=== PATIENT | female | born 1970 | race Caucasian/White ===

== ENCOUNTER 2016-12-24 21:27 | Emergency (ER) | payer BC ==
[2016-12-24 21:48] VITALS: BP 109/63; PULSE 67; TEMP 98; BMI 25.4
--- NOTE | 2016-12-24 23:28 | PDOC ---
Attending Attestation - Resident Resident Name: Anastasiia Bearden - HPI HPI: 12/24/16 23:27 46 YO WNWD FEMALE P/W LOWER LEFT CALF PAIN - Physicial Exam PE: 12/24/16 23:28 46 yo female HEENT wnl lungs cta b.l cvs [id number] abd nontender left calf, no erythema ,no cellulitis neuro no gross focal deficits - Medical Decision Making 12/24/16 23:29 duplex doppler of left leg is NEGATIVE
--- NOTE | 2016-12-24 23:31 | PDOC ---
History of Present Illness - General Chief Complaint: Pain Stated Complaint: PAIN Time Seen by Provider: 12/24/16 22:51 History Source: Patient Exam Limitations: No Limitations - History of Present Illness Initial Comments: This is a 46 yo female with h/o pre-diabetes who presents with pain in the left calf and the back of the knee. Her pain started two days ago and has been worsening, feels like a tightness or a pulled muscle, and occasionally radiates down to the bottom of her left foot. The pain is normally minimal, but when she is walking or bending the knee, it increases to 8/10. She has taken Motrin for the pain at home. She denies any falls or other injuries lately, but notes that she frequently wears high heels. She has not experienced any recent SOB, chest pain, cough, sore throat, fever, chills, or vision changes. She returned from a trip to [place] on 12/17 but has had no other recent travel. She has no h/o blood clotting problems or miscarriages, and her mother never had a miscarriage that she knows of. Past History - Past Medical History Allergies/Adverse Reactions: Allergies Allergy/AdvReac Type Severity Reaction Status Date / Time Penicillins Allergy Hives Verified 12/24/16 21:46 Home Medications: Ambulatory Orders NK [No Known Home Medication] 03/05/15 Other medical history: Pt denies - Psycho/Social/Smoking Cessation Hx Anxiety: Yes Suicidal Ideation: No Smoking History: Never smoked Information on smoking cessation initiated: No Hx Alcohol Use: No Drug/Substance Use Hx: No Substance Use Type: None Review of Systems - Review of Systems Constitutional: No: Chills, Fever, Unexplained wgt Loss HEENTM: No: Nose Congestion, Throat Pain Respiratory: No: Cough, Shortness of Breath Cardiac (ROS): No: Chest Pain, Palpitations ABD/GI: No: Constipated, Diarrhea, Nausea, Vomiting : No: Burning, Dysuria Musculoskeletal: Yes: Other (left knee pain, left calf pain). No: Back Pain, Neck Pain Integumentary: No: Bruising, Rash Neurological: No: Headache, Numbness, Tingling, Weakness, Dizziness Endocrine: No: Unexplained Weight Gain, Unexplained Weight Loss *Physical Exam - Vital Signs Last Vital Signs Temp Pulse Resp BP Pulse Ox 98.0 F 67 20 109/63 99 12/24/16 21:46 12/24/16 21:46 12/24/16 21:46 12/24/16 21:46 12/24/16 21:46 - Physical Exam General Appearance: Yes: Nourished, Appropriately Dressed, Other (well- appearing and conversive female). No: Apparent Distress HEENT: positive: EOMI, Normal Voice, Hearing Grossly Normal. negative: Scleral Icterus (R), Scleral Icterus (L), Nasal Congestion Neck: positive: Trachea midline, Supple. negative: Tender, Rigid Respiratory/Chest: positive: Lungs Clear, Normal Breath Sounds. negative: Chest Tender, Respiratory Distress, Labored Respiration, Crackles, Rhonchi, Stridor, Wheezing Cardiovascular: positive: Regular Rhythm, Regular Rate. negative: Edema, JVD, Murmur Vascular Pulses: Dorsalis-Pedis (R): 2+, Doralis-Pedis (L): 2+ Gastrointestinal/Abdominal: positive: Normal Bowel Sounds, Soft. negative: Tender, Organomegaly, Pulsatile Mass, Guarding Musculoskeletal: positive: Normal Inspection. negative: Decreased Range of Motion, Vertebral Tenderness Extremity: positive: Normal Capillary Refill, Normal Inspection, Normal Range of Motion, Other (mild tenderness to mid-calf and medial knee overlying medial collateral ligament on the left, no ligamentous instability to varus/valgus stress or anterior/posterior drawer tests, negative Madie's test). negative: Cyanosis Integumentary: positive: Normal Color, Dry, Warm. negative: Erythema, Rash, Bruising Neurologic: positive: carpenters II-XII NML intact, Fully Oriented, Alert, Normal Mood/ Affect, Normal Response, Motor Strength 5/5 ED Treatment Course - RADIOLOGY Radiology Studies Ordered: LLE Doppler without e/o DVT. Medical Decision Making - Medical Decision Making 46 yo female p/w left calf and knee pain. Recently traveled but no CP, SOB, h/o clotting d/o. VS are wnl and a LLE Doppler study was ordered on Pt's arrival. Doppler is negative for DVT. DDX includes muscle strain/sprain, MCL injury, medial meniscus tear, arthritis. Pt's pain is minimal and she is able to ambulate without difficulty. Exam notable for mild left calf ttp and mild left medial knee jointline ttp. No ligamentous instability or crepitus on ROM of knee. Pt's main concern was for DVT and she is comforted by the Doppler results. She is appropriate for discharge home with outpatient management. She is counseled on return precautions. *DC/Admit/Observation/Transfer Diagnosis at time of Disposition: Pain of left calf - Discharge Dispostion Disposition: HOME Condition at time of disposition: Stable Admit: No - Referrals Referrals: Jermaine Mccoy MD [Primary Care Provider] - - Patient Instructions Printed Discharge Instructions: DI for Leg Pain Additional Instructions: You were seen today for leg pain. We did an ultrasound study of the vessels in the left leg and we did not see any blood clots in those vessels. We also did a history and physical exam and were able to find some tenderness in your left calf, but we did not find anything on our exam that could be harmful to you. Please take Motrin as the medication instructions indicate for pain if you need it. Do not wear high heels for about two weeks until your pain has resolved completely. Use RICE therapy (Rest, Ice, Compression, Elevation) to avoid swelling and help with the pain. Follow up with your regular doctor or return to the emergency room for any new or worsening symptoms like chest pain or shortness of breath. - Attestations Physician Attestion: 12/24/16 23:31 I, Dr. Anastasiia Bearden, attest that this document has been prepared under my direction and personally reviewed by me in its entirety. I further attest, that it accurately reflects all work, treatment, procedures and medical decision -making performed by me.
== END 2016-12-24 23:42 | disposition home or self-care (01) ==
LOC: JER 21:27
DX: M79.662 Pain in left lower leg (principal); R73.03 Prediabetes; Z88.0 Allergy status to penicillin
CPT/HCPCS: 93971-TC; 99281-25

== ENCOUNTER 2017-02-18 20:47 | Emergency (ER) | payer BC ==
[2017-02-18 21:08] VITALS: BP 106/63; PULSE 76; TEMP 98; BMI 25.4
--- NOTE | 2017-02-18 22:24 | PDOC ---
History of Present Illness - General Chief Complaint: Pain Stated Complaint: KNEE PAIN Time Seen by Provider: 02/18/17 22:23 History Source: Patient - History of Present Illness Initial Comments: 02/18/17 22:55 Patient is a 46 y.o. female with a PMH of MVP who presents c/o 1 week h/o RLE throbbing pain and swelling. Patient notes initially the pain was in her medial thigh and then migrated to above her patella. Patient is unable to identify and triggering or relieving factors and denies any fevers, chills, chest pain or shortness of breath. Past History - Past Medical History Allergies/Adverse Reactions: Allergies Allergy/AdvReac Type Severity Reaction Status Date / Time Penicillins Allergy Hives Verified 02/18/17 20:53 Home Medications: Ambulatory Orders NK [No Known Home Medication] 03/05/15 Other medical history: Pt denies - Suicide/Smoking/Psychosocial Hx Smoking History: Never smoked Have you smoked in the past 12 months: No Information on smoking cessation initiated: No Hx Alcohol Use: No Drug/Substance Use Hx: No Substance Use Type: None Review of Systems - Review of Systems Able to Perform ROS?: No Constitutional: No: Chills, Fever Respiratory: No: Cough, Shortness of Breath Cardiac (ROS): No: Chest Pain, Edema ABD/GI: No: Constipated, Diarrhea, Nausea, Vomiting : No: Burning, Dysuria Musculoskeletal: Yes: See HPI, Joint Swelling All Other Systems: Reviewed and Negative *Physical Exam - Vital Signs Last Vital Signs Temp Pulse Resp BP Pulse Ox 98.0 F 76 18 106/63 98 02/18/17 20:54 02/18/17 20:54 02/18/17 20:54 02/18/17 20:54 02/18/17 20:54 - Physical Exam General Appearance: Yes: Nourished, Appropriately Dressed Neck: positive: Trachea midline, Supple Respiratory/Chest: positive: Lungs Clear, Normal Breath Sounds Cardiovascular: positive: Regular Rhythm, Regular Rate, S1, S2 Gastrointestinal/Abdominal: positive: Soft Musculoskeletal: positive: Decreased Range of Motion Extremity: positive: Calf Tenderness, Other (3 cm diameter circular fluctuant mass ) Integumentary: positive: Normal Color, Dry, Warm Neurologic: positive: Fully Oriented, Alert Medical Decision Making - Medical Decision Making 02/18/17 22:59 Patient is a 46 y.o. female who presents with RLE swelling. Initial DDx is Durant's Cyst vs. DVT. PLAN: 1. RLE Duplex US Disposition is likely home with f/u with PCP for symptomatic treatment. 02/18/17 23:56 Patient signed out to Dr. Andersen (Resident) and Dr. Stewart (Attending) *DC/Admit/Observation/Transfer Diagnosis at time of Disposition: Synovial cyst of popliteal space
--- NOTE | 2017-02-19 00:02 | PDOC ---
*Physical Exam - Vital Signs Last Vital Signs Temp Pulse Resp BP Pulse Ox 98.0 F 76 18 106/63 98 02/18/17 20:54 02/18/17 20:54 02/18/17 20:54 02/18/17 20:54 02/18/17 20:54 Medical Decision Making - Medical Decision Making 02/19/17 00:01 Care taken over from Dr. Whitten. Patient likely to be d/c pending U/s Doppler of LE 02/19/17 01:09 Patient underwent U/S doppler of RLE. Will obtain Doppler of Left LE. 02/19/17 04:52 Patient to be d/c. Will call patient @ [phone] if results of duplex are + for DVT. Patient uses [facility]. 02/19/17 05:07 Preliminary report negative. Patient called and informed. Patient notified that final report will be in the AM and she may receive another phone call in the AM. *DC/Admit/Observation/Transfer Diagnosis at time of Disposition: Bakers cyst Qualifiers: Laterality: left Qualified Code(s): M71.22 - Synovial cyst of popliteal space [ Durant], left knee - Discharge Dispostion Disposition: HOME Condition at time of disposition: Stable - Referrals Referrals: Jermaine Mccoy MD [Primary Care Provider] - - Patient Instructions Additional Instructions: Please follow up with your orthopedist and primary care physician within 1 week. If you have chest pain, shortness of breath or any new/worsening symptoms please come back to the hospital immediately. - Post Discharge Activity
== END 2017-02-19 05:24 | disposition home or self-care (01) ==
LOC: JER 20:47
DX: M71.21 Synovial cyst of popliteal space [Baker], right knee (principal)
CPT/HCPCS: 93971-TC; 99282-25

== ENCOUNTER 2018-11-10 07:01 | Emergency (ER) | payer BC ==
[2018-11-10 07:25] VITALS: TEMP 97.5; BMI 28.3
[2018-11-10] MEDS ORDERED: LACTATED RINGERS SOLUTION 1000 ML INFUS.BAG IV ONE (07:48)
[2018-11-10] MEDS ORDERED: ASPIRIN 81 MG CHEWABLE TABLETS PO ONE (07:48)
[2018-11-10] MEDS ORDERED: ASPIRIN 81 MG CHEWABLE TABLETS ONE (08:03)
--- NOTE | 2018-11-10 08:10 | PDOC ---
History of Present Illness - General Chief Complaint: Lightheaded Stated Complaint: DIZZY Time Seen by Provider: 11/10/18 07:26 History Source: Patient, Old Records, Primary Care Provider (Dominic faxed EMG Results.) Exam Limitations: No Limitations - History of Present Illness Initial Comments: HPI: 47 y/o female presenting to [facility] ER complaining of a difficulty to describe sensation inside of the back of her neck and her left shoulder. Sensation has been occuring at night over the past few weeks. While getting ready for work this morning, she began to experience the sensation and became extremely concerned. She elected to call a cab and self-present to the ED. On arrival at this facility, she was found to be emotive in affect, tachypneic, and claimed she was concerned about her heart. Triage nurse documented pt exclaimed, "Im going to pass out, I dont feel right." Pt was calmed via verbal talk down measures. Breathing returned to normal. She further reports her suffered a number of strokes a few years ago. He reportedly was not aware he was sick until afterwards. Reports normal levels of stress at home and at work. PCP: Dr. Prem Sylvester Hx: - EtOH: Denies - Tobacco: Denies - Street Drugs: Denies Family Hx: - Brother s/p unknown cardiac surgery Medical Hx: - H/o of heart murmur secondary to valve prolapse. Pt thinks it may be a mitral valve prolapse. Review of Systems: In addition to that documented in the HPI above, the additional ROS was obtained : Constitutional: Denies fevers or chills Head: Denies vision changes ENMT: Denies sore throat CV: Denies palpitations Resp: Endorses SOB during episode this morning. GI: Denies vomiting or diarrhea : Denies painful urination MSK: Denies recent trauma Skin: Denies new rashes Neuro: Denies new numbness or tingling or weakness Endocrine: Denies polyuria Heme: Denies bleeding or bruising Physical Examination: Constitutional: Well-developed, well-nourished adult female in no acute distress or obvious discomfort. Found sitting upright on side of bed. Alert and oriented x4. Answered all questions appropriately and completely. Speech was non -labored, non-pressured. Head: Normocephalic. No obvious external signs of trauma. Ears: Hearing grossly intact. Nose: No nasal discharge. Throat: Oral cavity and pharynx normal. No inflammation, swelling, exudate, or lesions. Teeth and gingiva in good general condition. Neck: Supple, trachea is midline. Cardiovascular / Chest: Regular rate and regular rhythm. ? systolic murmur. No rubs, clicks, or gallops. Peripheral pulses: radial pulses full. No anterior chest wall tenderness. Respiratory: Breathing unlabored. Equal chest rise and fall. Clear to auscultation bilaterally. No stridor, no wheezing, no rhonchi. Gastrointestinal: abdomen is soft, non-tender, non-distended. Neuro: Alert and oriented. Moving all four extremities spontaneously. Upper and lower extremities: proximal and distal strength 5/5. Well Blower strength 5/5 - equal and symmetric. Plantar flexion and dorsiflexion 5/5. No nuchal rigidity. Skin: Warm, dry, and intact. No bruising, rashes, or other lesions. Psych: Affect: appropriate. Mood: normal. MDM: *Reviewed vital signs, nursing notes, and prior visit documentation (if available). 47 y/o female presenting with vague neck symptoms with sudden onset of panic sensation. Afebrile. Vitals unremarkable for hypotension with borderline tachycardia. Normoxic on room air. Physical exam as described above. Initial and three hour repeat EKGs revealed a sinus rhythm without ischemic findings. Initial and repeat troponin not elevated. CBC unremarkable for anemia or leukocytosis. CMP unremarkable for significant electrolyte derangement, LFT elevation, or Cr elevation. CXR unremarkable for acute cardiopulmonary process. Though little suspicion for intracranial lesion given duration of symptoms and lack of neurologic complaints, a head CT was obtained and found to be unremarkable for acute pathology. Pt was monitored on telemetry monitoring while awaiting repeat troponin. No arrhythmias recorded. Continue to have very low suspicion for ACS versus arrhythmia. Suspect paresthesia secondary to period of tachypnea. Pt reportedly underwent cardiac echo recently at [facility]. Called to obtain results of recent studies. Pt actually underwent EMG testing for carpal tunnel syndrome. No echo on file with the practice. Pt reassessed and reports feeling much better. Symptoms have not recurred. Discussed imaging and laboratory results with pt. Answered all questions. Provided return precautions. Pt expressed verbal understanding and agreement with plan to discharge home with outpatient follow up. Provided copies of all results. Sage Stoll M.D., PGY1 Emergency Medicine Resident Past History - Past Medical History Allergies/Adverse Reactions: Allergies Allergy/AdvReac Type Severity Reaction Status Date / Time Penicillins Allergy Hives Verified 11/10/18 07:21 Home Medications: Ambulatory Orders NK [No Known Home Medication] 03/05/15 - Suicide/Smoking/Psychosocial Hx Smoking History: Never smoked Have you smoked in the past 12 months: No Hx Alcohol Use: No Drug/Substance Use Hx: No Substance Use Type: None *Physical Exam - Vital Signs Last Vital Signs Temp Pulse Resp BP Pulse Ox 97.5 F L 88 18 132/72 100 11/10/18 07:05 11/10/18 07:05 11/10/18 07:05 11/10/18 07:05 11/10/18 07:05 ED Treatment Course - LABORATORY CBC & Chemistry Diagram: 11/10/18 08:00 11/10/18 08:00 - RADIOLOGY Radiology Studies Ordered: Category Date Time Status HEAD CT WITHOUT CONTRAST [CT] Stat CT Scan 11/10/18 08:04 Ordered - Medications Given in the ED: ED Medications Discontinued Medications Generic Name Dose Route Start Last Admin Trade Name Vinayakq PRN Reason Stop Dose Admin Aspirin 324 mg 11/10/18 07:48 11/10/18 08:08 Asa - PO 11/10/18 07:49 324 mg ONCE ONE Administration Lactated Ringer's 1,000 ml 11/10/18 07:48 11/10/18 08:08 Lactated Ringers Solution IV 11/10/18 07:49 1,000 ml ONCE ONE Administration *DC/Admit/Observation/Transfer Diagnosis at time of Disposition: Neck discomfort, Paresthesia - Discharge Dispostion Disposition: HOME Condition at time of disposition: Improved Decision to Admit order: No - Referrals Referrals: Kris Ash MD [Primary Care Provider] - - Patient Instructions Printed Discharge Instructions: DI for Neck Pain Additional Instructions: You were seen today for a sensation in your neck and back of your head that you could not describe. You also expressed concern that you were going to . We checked your heart with multiple EKGs and multiple cardiac enzyme tests. Each test was normal. Your chest xray was normal. Your head CT was normal. Your electrolytes were normal. Your liver function tests were normal. Your kidney function tests were normal. The cause of your symptoms is not clear but it is not likely to be an acute life threat. You can take over the counter Tylenol or Advil as needed for pain. Take as directed on the package insert. Do not exceed the recommended dosage. Follow up with your primary care doctor within the next 3-4 days. You will need to call to make an appointment. The number is included in this packet. A copy of todays results are attached to this packet. Take it to the appointment so your doctor can review them. Go to the nearest emergency department if your condition worsens or you feel like you need additional emergency evaluation. Print Language: [id number] - Post Discharge Activity Forms/Work/School Notes: Back to Work
--- NOTE | 2018-11-10 08:16 | PDOC ---
Attending Attestation - Resident Resident Name: Sage Stoll - ED Attending Attestation I have performed the following: I have examined & evaluated the patient, The case was reviewed & discussed with the resident, I agree w/resident's findings & plan - HPI HPI: 11/10/18 08:12 47 YOF with prediabetes, MVP/heart murmur presenting with head "numbness," neck "numbness," shortness of breath and arm tingling bilaterally. she woke up this morning with symptoms. for the past 3 days, also having sensation of mosquito/fullness in ears, alternating sides no fever no cp, no weakness or gait instability. no respiratory sx. h/o near syncopal episode in the past, no clear etiology and workup unremarkable. - Physicial Exam PE: 11/10/18 08:14 Agree with the resident's HPI and PE as documented in the electronic medical record. NAD, anxious, tearful, NCAT EOMI, PERRL, bilateral T.M clear, MMM, nl conjunctiva, anicteric; neck supple. lungs clear, RRR, abdomen soft nontender. Back nontender. CHAU x4, no focal neuro deficits. No peripheral edema. normal color for ethnicity, WWP. - Medical Decision Making 11/10/18 08:14 hpi as documented VS reviewed anl DDX ACS, arrhythmia, PE, CLIPPER OPERATOR lesion, CVA, paresthesias, , electrolyte/ metabolic derangements, anxiety reaction PERC neg, so unlikely and low suspicion for PE ED course: - labs and lytes wnl. preg test neg - cardiac profile, trop neg x2, reassuring - CXR unremarkable, no acute chest pathology - CTH neg for mass/CVA, bleed. no cp, sob resolving no focal neuro deficits ambulatory, no pain, no systemic/infectious symptoms. Pt to be discharged in stable condition. Patient and family made aware of clinical impression, treatment recommendations and disposition plan, return precautions discussed (including but not limited to new or persistent/worsening symptoms, pain, fevers, or signs of infection, chest pain, respiratory distress , inability to tolerate oral intake, dehydration, syncope, or neurologic changes ). Follow up with PMD and/or specialist as recommended, follow up information provided, take medications as instructed for duration of time. continue with supportive care, avoid triggers and precipitants. All questions answered to patient's satisfaction and expressed understanding and comfort with this. At the time of discharge, the patient is alert, clinically improved, tolerating po and verbalizes understanding of instructions, satisfied with the care received and felt comfortable with the plan. Patient does not suffer from an acute life- threatening medical condition at this time and is safe for outpatient follow- up. 11/10/18 08:15 11/10/18 09:15 Heart Score/ECG Review #1 ECG reviewed & interpreted by me at: 07:20 General ECG Interpretation: Sinus Rhythm, Normal Rate, Normal Intervals 11/10/18 08:17 EKG normal sinus rhythm at 95 bpm, no interval abnormalities, narrow QRS, ST and T wave segments and morphology normal. Nonspecific T wave abnormalities
[2018-11-10 08:19] LABS: BASO % 1.2 % (0-2.0); EOS % 1.2 % (0-4.5); HEMATOCRIT 36.9 % (32.4-45.2); HEMOGLOBIN 12.7 GM/dL (10.7-15.3); LYMPH % 36.7 % (8-40); MCHC 34.5 g/dl (32.0-36.0); MEAN PLT VOLUME 8.3 fl (7.5-11.1); MONO % 9.3 % (3.8-10.2); NEUT % 51.6 % (42.8-82.8); PLATELET COUNT 300 K/MM3 (134-434); RDW 13.4 % (11.6-15.6); WHITE BLOOD COUNT 5.7 K/mm3 (4.0-10.0)
[2018-11-10 08:56] LABS: ALBUMIN 4.2 g/dl (3.4-5.0); ALK PHOS 73 U/L (45-117); ANION GAP 9 MMOL/L (8-16); BILIRUBIN,TOTAL 0.3 mg/dL (0.2-1); BLOOD UREA NITROGEN 13.5 mg/dL (7-18); CALCIUM 9.7 mg/dL (8.5-10.1); CHLORIDE 108 mmol/L (98-107); CO2 27 mmol/L (21-32); CREATININE 0.8 mg/dL (0.55-1.3); GLUCOSE,RANDOM 107 mg/dL (74-106); POTASSIUM 3.9 mmol/L (3.5-5.1); SGOT/AST 12 U/L (15-37); SGPT/ALT 14 U/L (13-61); SODIUM 143 mmol/L (136-145); TOT PROT 7.9 g/dl (6.4-8.2)
[2018-11-10 11:46] VITALS: BP 128/76; PULSE 78
--- NOTE | 2018-11-10 13:47 | EKG ---
Test Reason : Blood Pressure : / mmHG Vent. Rate : 095 BPM Atrial Rate : 095 BPM P-R Int : 152 ms QRS Dur : 074 ms QT Int : 352 ms P-R-T Axes : 060 021 045 degrees QTc Int : 442 ms NORMAL SINUS RHYTHM NONSPECIFIC ST ABNORMALITY ABNORMAL ECG NO PREVIOUS ECGS AVAILABLE Confirmed by SADIQ CONTRERAS MD ([id number]) on 11/10/2018 1:47:27 PM Referred By: Confirmed By:SADIQ CONTRERAS MD
--- NOTE | 2018-11-11 10:36 | EKG ---
Test Reason : Blood Pressure : / mmHG Vent. Rate : 060 BPM Atrial Rate : 060 BPM P-R Int : 172 ms QRS Dur : 068 ms QT Int : 404 ms P-R-T Axes : 062 023 044 degrees QTc Int : 404 ms NORMAL SINUS RHYTHM NORMAL ECG WHEN COMPARED WITH ECG OF 10-NOV-2018 07:17, VENT. RATE HAS DECREASED BY 35 BPM Confirmed by Aaron Conn MD ([id number]) on 11/11/2018 10:36:19 AM Referred By: Confirmed By:Aaron Conn MD
== END 2018-11-10 11:46 | disposition home or self-care (01) ==
LOC: JER 07:01
PROC: 3E0337Z Introduction of Electrolytic and Water Balance Substance into Peripheral Vein, Percutaneous Approach (ICD-10-PCS; principal; 2018-11-10)
DX: M54.2 Cervicalgia (principal); R20.2 Paresthesia of skin; R73.03 Prediabetes; R01.1 Cardiac murmur, unspecified; I34.1 Nonrheumatic mitral (valve) prolapse
CPT/HCPCS: 36415; 70450-TC; 71046-TC-FY; 80053; 82962; 84484; 84703; 85025; 93005; 93010; 99283-25

== ENCOUNTER 2019-05-24 15:31 | Emergency (ER) | payer BC, OTHER ==
[2019-05-24 15:44] VITALS: BP 108/68; PULSE 86; TEMP 99.2; BMI 23.8
[2019-05-24] MEDS ORDERED: IBUPROFEN 600 MG TABLET (FP) PO ONE ×2 (16:02→16:10)
--- NOTE | 2019-05-24 16:09 | PDOC ---
History of Present Illness - General Chief Complaint: Cold Symptoms Stated Complaint: COLD SYMPTOMS Time Seen by Provider: 05/24/19 15:52 History Source: Patient Exam Limitations: No Limitations - History of Present Illness Initial Comments: 05/24/19 16:04 Patient is a 48-year-old female with a history of a heart murmur who presents the ED with complaint of sore throat, body aches and general unwell feeling since yesterday. She states today she began to feel even worse. She admits to having a fever with T-max of 102F. She has not been taking anything for her symptoms. She states she has been around people who have the flu at work. Past History - Past Medical History Allergies/Adverse Reactions: Allergies Allergy/AdvReac Type Severity Reaction Status Date / Time Penicillins Allergy Hives Verified 05/24/19 15:43 Home Medications: Ambulatory Orders NK [No Known Home Medication] 03/05/15 COPD: No - Psycho Social/Smoking Cessation Hx Smoking History: Never smoked Have you smoked in the past 12 months: No Hx Alcohol Use: No Drug/Substance Use Hx: No Substance Use Type: None Review of Systems - Review of Systems Comments:: 05/24/19 16:05 - Review of Systems Able to Perform ROS?: Yes Constitutional: No: Loss of Appetite, Night Sweats, Weakness; Positive fever and chills HEENTM: No: Eye Pain, Vision changes, Ear Pain, Throat Swelling, Mouth Pain, Difficulty Swallowing Respiratory: No: Cough, Shortness of Breath, Wheezing, Sputum Production Cardiac (ROS): No: Chest Pain, Chest Tightness, Palpitations, Irregular Heart Beat, Edema ABD/GI: No: Nausea, Vomiting, Abdominal Pain, Diarrhea : No Dysuria, No Hematuria, No Frequency, No Urgency, No Vaginal Discharge/ Pain, No Penile Discharge/Pain Musculoskeletal: No: Back Pain, Joint Pain, Muscle Weakness, Neck Pain; + bodyaches Integumentary: No: Lesions, Rash Neurological: No: Headache, Numbness, Tingling, Weakness, Speech Difficulties *Physical Exam - Vital Signs Last Vital Signs Temp Pulse Resp BP Pulse Ox 99.2 F 86 18 108/68 99 05/24/19 15:40 05/24/19 15:40 05/24/19 15:40 05/24/19 15:40 05/24/19 15:40 - Physical Exam 05/24/19 16:07 - Physical Exam General Appearance: Nourished, Appropriately Dressed, No Distress HEENT: EOMI, Normal Voice, TMs Normal, No Nasal Congestion, No Rhinorrhea, Hearing Grossly Normal, No TM Bulging. No Muffled/Hoarse voice, No Tonsillar Exudate, No TM Dullness, No TM Erythema; Moderate Pharyngeal Erythema, Moderate Tonsillar Erythema, Neck: Supple, No Rigidity, No Decreased range of motion, + anterior cervical Lymphadenopathy b/l Respiratory/Chest: Lungs Clear, Normal Breath Sounds. No Respiratory Distress, No Accessory Muscle Use Cardiovascular: Regular Rhythm, Regular Rate, S1, S2 Gastrointestinal/Abdominal: Normal Bowel Sounds, Soft. Non-tender, No Guarding , No Rebound, No Rigidity Musculoskeletal: Normal Inspection. No Decreased Range of Motion Extremity: Normal Capillary Refill, Normal Inspection Integumentary: Normal Color, Dry. No Rash Neurologic: speech therapist early intervention II-XII NML intact, Fully Oriented, Alert, Normal Mood/Affect, Normal Response ED Treatment Course - ADDITIONAL ORDERS Additional order review: 05/24/19 16:56 Laboratory Tests 05/24/19 05/24/19 16:02 16:02 Influenza A (Rapid) Negative Influenza B (Rapid) Negative Group A Strep Rapid Negative Medical Decision Making - Medical Decision Making 05/24/19 16:56 Pt has been made aware that her flu swab and her throat swab were negative. The patient has been encouraged to increase her fluids and get plenty of rest. She should take tylenol or ibuprofen for fever or bodyaches. She should follow- up with her primary doctor within 1 to 2 days for repeat evaluation. She should return to the ED for high fevers, shaking chills, profuse vomiting or any other worsening symptoms. Discharge - Discharge Information Problems reviewed: Yes Clinical Impression/Diagnosis: URI, acute Condition: Stable Disposition: HOME - Follow up/Referral Referrals: Kris Ash MD [Primary Care Provider] - - Patient Discharge Instructions Patient Printed Discharge Instructions: DI for Common Cold Additional Instructions: Get plenty of rest and drink plenty of fluids. Take Tylenol or ibuprofen for body aches or fevers. Follow-up with your primary doctor within 1 to 2 days for repeat evaluation. Return to the ED for high fevers, shaking chills, profuse vomiting or any other worsening symptoms. - Post Discharge Activity Work/Back to School Note: Back to Work
== END 2019-05-24 17:05 | disposition home or self-care (01) ==
LOC: JER 15:31 → JERFT 15:31
DX: J06.9 Acute upper respiratory infection, unspecified (principal); Z88.0 Allergy status to penicillin
CPT/HCPCS: 87070; 87804; 87880; 99281-25

== ENCOUNTER 2020-07-29 11:03 | Inpatient (IN) | payer BC, OTHER ==
[2020-07-29 12:03] LABS: BASO % 0.9 % (0-2.0); EOS % 1.1 % (0-4.5); HEMATOCRIT 36.4 % (32.4-45.2); HEMOGLOBIN 12.2 GM/dL (10.7-15.3); LYMPH % 36.3 % (8-40); MCH 29.9 pg (25.7-33.7); MCHC 33.4 g/dl (32.0-36.0); MEAN CELL VOLUME 89.4 fl (80-96); MEAN PLT VOLUME 8.4 fl (7.5-11.1); MONO % 7.9 % (3.8-10.2); NEUT % 53.8 % (42.8-82.8); PLATELET COUNT 302 K/MM3 (134-434); RBC 4.08 M/mm3 (3.60-5.2); RDW 13.6 % (11.6-15.6); WHITE BLOOD COUNT 5.4 K/mm3 (4.0-10.0)
[2020-07-29 12:07] LABS: PH,URINE 6.5 (5.0-8.0); URINE APPEARANCE CLEAR; URINE BILIRUBIN NEGATIVE (NEGATIVE); URINE COLOR YELLOW; URINE GLUCOSE (UA) NEGATIVE (NEGATIVE); URINE KETONE NEGATIVE (NEGATIVE); URINE LEUK ESTERASE NEGATIVE (NEGATIVE); URINE NITRITE NEGATIVE (NEGATIVE); URINE PROTEIN NEGATIVE (NEGATIVE); URINE UROBILINOGEN 0.2 mg/dL (0.2-1.0)
[2020-07-29 12:09] LABS: PROTHROMBIN TIME (PATIENT) 12.1 SEC (9.7-13.0)
[2020-07-29 12:12] LABS: ACTIVATED PTT 29.9 SECONDS (25.2-36.5)
[2020-07-29 12:28] LABS: CHLORIDE 109 mmol/L (98-107); POTASSIUM 4.2 mmol/L (3.5-5.1); SODIUM 141 mmol/L (136-145)
[2020-07-29 12:30] LABS: CALCIUM 9.2 mg/dL (8.5-10.1)
[2020-07-29 12:31] LABS: ANION GAP 6 MMOL/L (8-16); CO2 26 mmol/L (21-32); GLUCOSE,RANDOM 101 mg/dL (74-106)
[2020-07-29 12:34] LABS: SGOT/AST 14 U/L (15-37); SGPT/ALT 16 U/L (13-61)
[2020-07-29 12:35] LABS: CREATININE 0.7 mg/dL (0.55-1.3)
[2020-07-29 12:36] LABS: BILIRUBIN,TOTAL 0.4 mg/dL (0.2-1); TOT PROT 7.5 g/dl (6.4-8.2)
[2020-07-29 12:37] LABS: ALK PHOS 63 U/L (45-117)
[2020-07-29 12:48] LABS: BLOOD UREA NITROGEN 12.5 mg/dL (7-18)
[2020-07-30 02:13] VITALS: BMI 25.6
[2020-07-30] MEDS ORDERED: PANTOPRAZOLE 40 MG TABLET PO SCH (07:00)
[2020-07-30] MEDS: ASPIRIN COATED 81 MG TABLET.EC PO SCH (09:54)
[2020-07-31 07:14] LABS: BASO % 0.7 % (0-2.0); EOS % 2.4 % (0-4.5); HEMATOCRIT 36.4 % (32.4-45.2); HEMOGLOBIN 12.4 GM/dL (10.7-15.3); LYMPH % 37.3 % (8-40); MCH 30.6 pg (25.7-33.7); MCHC 34.1 g/dl (32.0-36.0); MEAN CELL VOLUME 89.6 fl (80-96); MEAN PLT VOLUME 8.3 fl (7.5-11.1); NEUT % 50.6 % (42.8-82.8); PLATELET COUNT 263 K/MM3 (134-434); RBC 4.06 M/mm3 (3.60-5.2); RDW 13.6 % (11.6-15.6); WHITE BLOOD COUNT 6.9 K/mm3 (4.0-10.0)
[2020-07-31 07:42] LABS: BLOOD UREA NITROGEN 20.2 mg/dL (7-18); CALCIUM 8.7 mg/dL (8.5-10.1)
[2020-07-31 07:43] LABS: ALBUMIN 3.6 g/dl (3.4-5.0)
[2020-07-31 07:46] LABS: CREATININE 0.9 mg/dL (0.55-1.3)
[2020-07-31 07:47] LABS: BILIRUBIN,TOTAL 0.4 mg/dL (0.2-1)
[2020-07-31] MEDS: ASPIRIN COATED 81 MG TABLET.EC PO SCH (09:06)
[2020-07-31 10:12] VITALS: BP 112/73; PULSE 70; TEMP 97.7
== END 2020-07-31 11:07 | disposition home or self-care (01) | DRG 93 ==
LOC: JER 11:03 → JERBED 13:57 → J4W 20:47
PROVIDERS: ADMIT Family Medicine; ATTEND Family Medicine
DX: R27.0 Ataxia, unspecified (principal); R73.03 Prediabetes; Z88.0 Allergy status to penicillin; R20.0 Anesthesia of skin
CPT/HCPCS: 36415; 70450-TC; 70551-TC; 71045-TC-FY; 80048; 80053; 81003; 82550; 83036; 84484; 85025; 85610; 85730; 86850; 86900; 86901; 87086; 93005; 93010; 99285-25; C9803; U0003

== ENCOUNTER 2021-07-23 13:55 | Emergency (ER) | payer BC ==
[2021-07-23 14:07] VITALS: BP 102/68; PULSE 90; TEMP 97; BMI 25.4
[2021-07-23 15:10] LABS: URINE APPEARANCE CLEAR; URINE BILIRUBIN NEGATIVE (NEGATIVE); URINE COLOR YELLOW; URINE GLUCOSE (UA) NEGATIVE (NEGATIVE); URINE KETONE NEGATIVE (NEGATIVE); URINE LEUK ESTERASE NEGATIVE (NEGATIVE); URINE NITRITE NEGATIVE (NEGATIVE); URINE PROTEIN NEGATIVE (NEGATIVE); URINE UROBILINOGEN 0.2 mg/dL (0.2-1.0)
== END 2021-07-23 16:08 | disposition home or self-care (01) ==
LOC: JERFT 13:55 → JER 13:55 → JERFT 16:08
DX: M79.605 Pain in left leg (principal)
CPT/HCPCS: 81003; 82962; 93971-TC; 99284-25

== ENCOUNTER 2021-09-04 14:05 | Emergency (ER) | payer BC ==
[2021-09-04 14:17] VITALS: BP 95/67; PULSE 90; TEMP 98.3; BMI 24.5
[2021-09-04] MEDS ORDERED: METHOCARBAMOL 500 MG TABLET PO ONE (15:56)
[2021-09-04] MEDS ORDERED: KETOROLAC TROMETHAMINE 30 MG/1 ML VIAL IM ONE (15:56)
[2021-09-04] MEDS ORDERED: METHOCARBAMOL 500 MG TABLET ONE (15:58)
[2021-09-04] MEDS ORDERED: KETOROLAC TROMETHAMINE 30 MG/1 ML VIAL ONE (15:58)
== END 2021-09-04 17:22 | disposition home or self-care (01) ==
LOC: JERFT 14:05
PROC: 3E023GC Introduction of Other Therapeutic Substance into Muscle, Percutaneous Approach (ICD-10-PCS; principal; 2021-09-04)
DX: M43.6 Torticollis (principal)
CPT/HCPCS: 72050-TC-FY; 99284-25

== ENCOUNTER 2022-04-24 08:17 | Emergency (ER) | payer BC ==
[2022-04-24 08:32] VITALS: BP 115/65; PULSE 69; RESP 17; TEMP 97.6; BMI 25.4
[2022-04-24] MEDS ORDERED: ONDANSETRON 4 MG TABLET PO ONE (09:28)
[2022-04-24] MEDS ORDERED: MECLIZINE HCL 12.5 MG TABLET PO ONE (09:28)
[2022-04-24] MEDS ORDERED: LORazepam 2 MG TABLET PO ONE (09:28)
[2022-04-24] MEDS ORDERED: LORazepam 0.5 MG TABLET ONE (09:41)
[2022-04-24] MEDS ORDERED: ONDANSETRON *ODT* 4 MG TABLET ONE (09:41)
[2022-04-24] MEDS ORDERED: MECLIZINE HCL 12.5 MG TABLET ONE (09:41)
[2022-04-24 10:24] LABS: BASO % 0.6 % (0-2.0); EOS % 1.2 % (0-4.5); HEMATOCRIT 37.2 % (32.4-45.2); HEMOGLOBIN 12.7 GM/dL (10.7-15.3); LYMPH % 17.8 % (8-40); MCH 30.4 pg (25.7-33.7); MCHC 34.2 g/dl (32.0-36.0); MEAN CELL VOLUME 88.8 fl (80-96); MEAN PLT VOLUME 8.1 fl (7.5-11.1); MONO % 7.9 % (3.8-10.2); NEUT % 72.5 % (42.8-82.8); PLATELET COUNT 323 10^3/uL (134-434); RBC 4.19 M/mm3 (3.60-5.2); RDW 13.9 % (11.6-15.6); WHITE BLOOD COUNT 7.8 K/mm3 (4.0-10.0)
[2022-04-24 10:44] LABS: ALBUMIN 4.1 g/dl (3.4-5.0); CALCIUM 9.4 mg/dL (8.5-10.1)
[2022-04-24 10:45] LABS: BLOOD UREA NITROGEN 10.3 mg/dL (7-18)
[2022-04-24 10:47] LABS: CREATININE 0.8 mg/dL (0.55-1.3)
[2022-04-24 10:49] LABS: BILIRUBIN,TOTAL 0.3 mg/dL (0.2-1); TOT PROT 7.7 g/dl (6.4-8.2)
== END 2022-04-24 11:22 | disposition home or self-care (01) ==
LOC: JER 08:17
DX: R42 Dizziness and giddiness (principal)
CPT/HCPCS: 0241U-QW; 36415; 70450-TC; 71046-TC-FY; 80053; 82962; 84484; 85025; 93005; 93010; 99285-25

== ENCOUNTER 2022-12-31 10:12 | Emergency (ER) | payer BC ==
[2022-12-31 10:22] VITALS: BMI 25.4
[2022-12-31] MEDS ORDERED: MAG HYDROX/AL HYDROX/SIMETH 30 ML UNIT-DOSE CUP PO ONE (12:08)
[2022-12-31] MEDS ORDERED: ONDANSETRON 4 MG/2 ML VIAL IVPUSH ONE (12:08)
[2022-12-31] MEDS ORDERED: FAMOTIDINE 20 MG/50 ML IVPB 20 MG/50 ML MG IVPB ONE ×2 (12:08→12:23)
[2022-12-31] MEDS ORDERED: SODIUM CHLORIDE 0.9% 500 ML INFUS.BAG IV ONE ×2 (12:11→12:13)
[2022-12-31] MEDS ORDERED: ONDANSETRON 4 MG/2 ML VIAL ONE (12:23)
[2022-12-31] MEDS ORDERED: MAG HYDROX/AL HYDROX/SIMETH 30 ML UNIT-DOSE CUP ONE (12:23)
[2022-12-31 12:56] LABS: BASO % 0.6 % (0-2.0); EOS % 2.4 % (0-4.5); HEMATOCRIT 38.7 % (32.4-45.2); HEMOGLOBIN 13.1 GM/dL (10.7-15.3); LYMPH % 19.2 % (8-40); MCH 29.9 pg (25.7-33.7); MCHC 33.8 g/dl (32.0-36.0); MEAN CELL VOLUME 88.4 fl (80-96); MEAN PLT VOLUME 7.8 fl (7.5-11.1); MONO % 8.1 % (3.8-10.2); NEUT % 69.7 % (42.8-82.8); PLATELET COUNT 282 10^3/uL (134-434); RBC 4.38 M/mm3 (3.60-5.2); RDW 13.3 % (11.6-15.6); WHITE BLOOD COUNT 6.8 K/mm3 (4.0-10.0)
[2022-12-31 13:16] LABS: POTASSIUM 4.1 mmol/L (3.5-5.1)
[2022-12-31 13:18] LABS: CALCIUM 9.3 mg/dL (8.5-10.1)
[2022-12-31 13:19] LABS: MAGNESIUM 2.4 mg/dL (1.8-2.4)
[2022-12-31 13:19] LABS: BLOOD UREA NITROGEN 10.4 mg/dL (7-18)
[2022-12-31 13:21] LABS: CREATININE 0.8 mg/dL (0.55-1.3)
[2022-12-31 13:23] LABS: PHOSPHOROUS 3.5 mg/dL (2.5-4.9)
[2022-12-31 13:23] LABS: TOT PROT 7.8 g/dl (6.4-8.2)
[2022-12-31 13:24] LABS: BILIRUBIN,TOTAL 0.6 mg/dL (0.2-1)
[2022-12-31 13:27] LABS: N-TERMINAL BNP 9.1 pg/ml (5-125)
[2022-12-31 14:46] VITALS: BP 95/64; PULSE 64; RESP 20; TEMP 98.1
== END 2022-12-31 14:47 | disposition home or self-care (01) ==
LOC: JER 10:12
PROC: 3E033GC Introduction of Other Therapeutic Substance into Peripheral Vein, Percutaneous Approach (ICD-10-PCS; principal; 2022-12-31)
PROC: 3E033GC Introduction of Other Therapeutic Substance into Peripheral Vein, Percutaneous Approach (ICD-10-PCS; 2022-12-31)
DX: R42 Dizziness and giddiness (principal); R11.0 Nausea; R00.2 Palpitations
CPT/HCPCS: 36415; 71046-TC-FY; 80053; 83735; 83880; 84100; 84443; 84484; 85025; 93005; 93010; 99285-25

== ENCOUNTER 2023-06-04 18:34 | Emergency (ER) | payer BC ==
[2023-06-04 18:52] VITALS: BMI 25.4
[2023-06-04] MEDS ORDERED: LACTATED RINGERS SOLUTION 1000 ML INFUS.BAG IV ONE (20:40)
[2023-06-04] MEDS ORDERED: METOCLOPRAMIDE HCL INJECTION 10 MG/2 ML VIAL IVPUSH ONE (20:40)
[2023-06-04] MEDS ORDERED: METOCLOPRAMIDE HCL INJECTION 10 MG/2 ML VIAL ONE (20:47)
[2023-06-04 21:15] LABS: BASO % 0.7 % (0-2.0); HEMOGLOBIN 12.7 GM/dL (10.7-15.3); LYMPH % 46.8 % (8-40); MCH 29.9 pg (25.7-33.7); MCHC 33.5 g/dl (32.0-36.0); MEAN CELL VOLUME 89.3 fl (80-96); MEAN PLT VOLUME 7.5 fl (7.5-11.1); MONO % 14.2 % (3.8-10.2); NEUT % 36.3 % (42.8-82.8); PLATELET COUNT 288 10^3/uL (134-434); RBC 4.25 M/mm3 (3.60-5.2); RDW 13.6 % (11.6-15.6)
[2023-06-04 21:29] LABS: CALCIUM 9.4 mg/dL (8.5-10.1)
[2023-06-04 21:31] LABS: ALBUMIN 3.9 g/dl (3.4-5.0); BLOOD UREA NITROGEN 11.6 mg/dL (7-18)
[2023-06-04 21:33] LABS: CREATININE 0.8 mg/dL (0.55-1.3)
[2023-06-04 21:35] LABS: BILIRUBIN,TOTAL 0.3 mg/dL (0.2-1); TOT PROT 8.2 g/dl (6.4-8.2)
[2023-06-04 22:59] LABS: PH,URINE 6.5 (5.0-8.0); URINE APPEARANCE CLEAR; URINE BILIRUBIN NEGATIVE (NEGATIVE); URINE COLOR YELLOW; URINE GLUCOSE (UA) NEGATIVE (NEGATIVE); URINE KETONE NEGATIVE (NEGATIVE); URINE LEUK ESTERASE NEGATIVE (NEGATIVE); URINE NITRITE NEGATIVE (NEGATIVE); URINE PROTEIN NEGATIVE (NEGATIVE); URINE UROBILINOGEN 0.2 mg/dL (0.2-1.0)
[2023-06-04 23:47] VITALS: BP 112/69; RESP 16; TEMP 98.4
[2023-06-04 23:48] VITALS: PULSE 70
== END 2023-06-04 23:49 | disposition home or self-care (01) ==
LOC: JER 18:34
PROC: 3E033GC Introduction of Other Therapeutic Substance into Peripheral Vein, Percutaneous Approach (ICD-10-PCS; principal; 2023-06-04)
DX: U07.1 COVID-19 (principal); R51.9 Headache, unspecified; R05.9 Cough, unspecified; R53.81 Other malaise; R09.81 Nasal congestion; R53.1 Weakness
CPT/HCPCS: 0241U-QW; 36415; 70450-TC; 71046-TC-FY; 80053; 81003; 85025; 87086; 93005; 93010; 99285-25

== ENCOUNTER 2023-11-07 01:55 | Emergency (ER) | payer BC ==
[2023-11-07 02:02] VITALS: BP 102/67; PULSE 67; RESP 18; TEMP 97.8; BMI 24.5
[2023-11-07] MEDS ORDERED: ONDANSETRON 4 MG/2 ML VIAL ONE (02:37)
[2023-11-07] MEDS ORDERED: ACETAMINOPHEN INJECTION 100 ML IVPB ONE (02:37)
[2023-11-07] MEDS: ACETAMINOPHEN 1000 MG/100 ML BAG IVPB ONE (02:43)
[2023-11-07] MEDS: LACTATED RINGERS SOLUTION 1000 ML INFUS.BAG IV ONE (02:43)
[2023-11-07] MEDS: ONDANSETRON 4 MG/2 ML VIAL IVPUSH ONE (02:43)
[2023-11-07 02:44] LABS: BASO % 0.3 % (0-2.0); EOS % 0.1 % (0-4.5); HEMATOCRIT 38.7 % (32.4-45.2); HEMOGLOBIN 12.8 GM/dL (10.7-15.3); LYMPH % 9.3 % (8-40); MCH 29.7 pg (25.7-33.7); MCHC 33.2 g/dl (32.0-36.0); MEAN CELL VOLUME 89.5 fl (80-96); MEAN PLT VOLUME 8.2 fl (7.5-11.1); MONO % 6.9 % (3.8-10.2); NEUT % 83.4 % (42.8-82.8); PLATELET COUNT 319 10^3/uL (134-434); RBC 4.32 M/mm3 (3.60-5.2); RDW 13.6 % (11.6-15.6); WHITE BLOOD COUNT 12.6 K/mm3 (4.0-10.0)
[2023-11-07 02:47] LABS: PH,URINE 5.5 (5.0-8.0); URINE APPEARANCE Clear; URINE BILIRUBIN 1+ (NEGATIVE); URINE COLOR Other; URINE GLUCOSE (UA) Negative (NEGATIVE); URINE KETONE 1+ (NEGATIVE); URINE LEUK ESTERASE Negative (NEGATIVE); URINE NITRITE Negative (NEGATIVE); URINE PROTEIN 1+ (NEGATIVE); URINE UROBILINOGEN 0.2 mg/dL (0.2-1.0)
[2023-11-07 02:50] LABS: EPI CELLS 47.2 /uL (0-25.1); HYALINE CASTS 2.77 /uL (0-3.1); URINE BACTERIA 440.7 /uL (0-1359); URINE RBC 20.8 /uL (0-23.9); URINE WBC 35.2 /uL (0-25.8)
[2023-11-07 03:13] LABS: POTASSIUM 4.2 mmol/L (3.5-5.1)
[2023-11-07 03:15] LABS: BLOOD UREA NITROGEN 18.8 mg/dL (7-18); CALCIUM 9.4 mg/dL (8.5-10.1); MAGNESIUM 2.1 mg/dL (1.8-2.4)
[2023-11-07 03:18] LABS: CREATININE 0.8 mg/dL (0.55-1.3)
[2023-11-07 03:21] LABS: BILIRUBIN,TOTAL 0.5 mg/dL (0.2-1); TOT PROT 7.6 g/dl (6.4-8.2)
== END 2023-11-07 03:46 | disposition home or self-care (01) ==
LOC: JER 01:55
PROC: 3E033NZ Introduction of Analgesics, Hypnotics, Sedatives into Peripheral Vein, Percutaneous Approach (ICD-10-PCS; principal; 2023-11-07)
PROC: 3E033GC Introduction of Other Therapeutic Substance into Peripheral Vein, Percutaneous Approach (ICD-10-PCS; 2023-11-07)
DX: R10.9 Unspecified abdominal pain (principal); R19.7 Diarrhea, unspecified; R55 Syncope and collapse; R30.0 Dysuria; R53.1 Weakness; R42 Dizziness and giddiness; R11.0 Nausea
CPT/HCPCS: 36415; 80053; 81003; 83690; 83735; 85025; 87086; 93005; 93010; 99284-25; J0131

== ENCOUNTER 2024-07-07 11:26 | Emergency (ER) | payer BC ==
[2024-07-07 13:13] VITALS: BP 110/70; PULSE 88; RESP 18; TEMP 97.9; BMI 25.4
== END 2024-07-07 12:34 | disposition home or self-care (01) ==
LOC: JERFT 11:26
DX: R50.9 Fever, unspecified (principal); J06.9 Acute upper respiratory infection, unspecified; R05.9 Cough, unspecified; M79.10 Myalgia, unspecified site; J34.89 Other specified disorders of nose and nasal sinuses; Z20.822 Contact with and (suspected) exposure to COVID-19
CPT/HCPCS: 0241U-QW; 99283-25